=== PATIENT | female | born 2005 | race Caucasian/White ===

== ENCOUNTER 2023-01-18 09:32 | Emergency (ER) | payer OTHER ==
[~2023-01-18] VITALS: Ht 152.4 cm; Wt 61.5 kg
[2023-01-18 09:38] VITALS: BP 102/56; PULSE 92; TEMP 98.6; O2SAT 97
[2023-01-18 10:02] VITALS: RESP 18
--- NOTE | 2023-01-18 12:57 | NUR ---
CUSTOMER RELATIONS CONSULTANT GENERAL ASSESSMENT REVIEWED BY LAUREN RNC CS; APPROVED
== END 2023-01-18 10:16 | disposition home or self-care (01) ==
LOC: ER 09:33
DX: S63.501A Unspecified sprain of right wrist, initial encounter (principal); S46.912A Strain of unspecified muscle, fascia and tendon at shoulder and upper arm level, left arm, initial encounter; F41.9 Anxiety disorder, unspecified; X58.XXXA Exposure to other specified factors, initial encounter; Y93.89 Activity, other specified; Y92.89 Other specified places as the place of occurrence of the external cause; Y99.8 Other external cause status
CPT/HCPCS: 73030; 73110; 99284

== ENCOUNTER 2024-11-18 11:17 | Emergency (ER) | payer OTHER ==
[~2024-11-18] VITALS: Ht 152.4 cm; Wt 54.4 kg
[2024-11-18 11:32] VITALS: BP 110/76; PULSE 119; RESP 18; O2SAT 98
[2024-11-18 12:14] LABS: STREP A SCREEN NEGATIVE (Neg)
--- NOTE | 2024-11-18 12:17 | Physician Documentation ---
History of Present Illness ~ Chief Complaint: Sore Throat Stated Complaint: THROAT PAIN Time Seen by MD: 11:58 Primary Medical Doctor: Logan Sargent HPI Female presents to the ED with a complaint of sore throat for the last three days. She denies any cough. Denies any fever. States that her throat feels like glass when swallowing Review of Systems All Other Systems at this time: Reviewed and Negative ROS As stated above in the HPI, otherwise all systems are reviewed and negative. Physical Exam Vital Signs: Temperature: 98.2, Source: Temporal, Heart Rate: 119, Respiratory Rate: 18, BP: 110/76, Pulse Oximetry: 98, Weight: 54.400 Oxygen Flow Rate: 0 Physical Exam General: Alert, no apparent distress. HEENT: PERRL, EOMI, no injection, moist mucous membranes. Swelling and exudate on the left tonsillar Respiratory: Lungs clear, no respiratory distress. Cardiovascular: Regular rate and rhythm, no murmurs. Gastrointestinal: Soft, nontender, nondistended. Bowels sounds present. . Neurologic: Oriented x4. Psychiatric: Normal mood and affect. Skin: Normal color, warm and dry. No edema, no ecchymosis. Progress Results/Orders Results/Orders Orders - LEVI PEREZ NP Covid19 Binax Poc Result Entry (11/18/24 12:05) Cult Throat + R/O Beta Strep (11/18/24 12:14) Completed Orders - LEVI PEREZ NP Strep A Rapid (11/18/24 11:58) Vital Signs 11/18/24 11:32 Temp 98.2 Pulse 119 Resp 18 B/P (MAP) 110/76 Pulse Ox 98 O2 Flow Rate 0 Laboratory Tests Test 11/18/24 11:28 Group A Streptococcus Rapid Negative Medical Decision Making Findings This patient tested negative for strep however based on my physical exam I am going to empirically treat her as I made note of positive exudate. Departure Disposition: 01 HOME / SELF CARE / HOMELESS Impression: Primary Impression: Irritation of pharynx Additional Impression: Strep throat Condition: Stable Discharge Instructions: Strep Throat, Adult Referrals: NO PRIMARY CARE PROVIDER (PCP) Prescriptions Azithromycin (Azithromycin) 250 Mg Tablet 1 TAB PO UD for 5 Days, #6 TAB 2 the first day followed by 1 for days 2-5 Prov: LEVI PEREZ NP 11/18/24 Signature Scribe Signature: e Attestation: Scribed for Levi Perez Np by Levi Perkins NP . 11/18/24 12:30 LEVI PEREZ NP Nov 18, 2024 12:17
[2024-11-18] MEDS ORDERED: AZIT-103 PO (12:29)
[2024-11-18 12:42] VITALS: TEMP 98.2
== END 2024-11-18 12:43 | disposition home or self-care (01) ==
LOC: ER 11:17
DX: J02.0 Streptococcal pharyngitis (principal)
CPT/HCPCS: 87081; 87880; 99283